=== PATIENT | female | born 1955 | race Caucasian/White ===

== ENCOUNTER 2021-05-22 15:44 | Emergency (ER) | payer MEDICARE ==
[~2021-05-22] VITALS: Ht 165.1 cm; Wt 85.0 kg
[2021-05-22 15:54] VITALS: BP 94/58
[2021-05-22] MEDS ORDERED: FAMOTIDINE 20 MG TABLET PO ONE (16:45)
[2021-05-22] MEDS ORDERED: diphenhydrAMINE HCL 25 MG CAPSULE PO ONE (16:45)
[2021-05-22] MEDS ORDERED: DEXAMETHASONE SOD PHOS 10 MG/ML VIAL. PO ONE (16:45)
--- NOTE | 2021-05-22 16:45 | PHYS DOC ---
Past History Past Surgical History: Cholecystectomy, Hysterectomy Additional Past Surgical Histo: right leg ino, trach Alcohol Use: None Adult General Chief Complaint Chief Complaint: CONGESTION HPI HPI Patient is a [age] year old [sex] who presents with [] Review of Systems Review of Systems Fourteen body systems of review of systems have been reviewed. See HPI for pertinent positives and negative responses, other sinclair all other systems are neg ative, non-pertinent or non-contributory Allergies Allergies Allergies Coded Allergies Type Severity Reaction Last Updated Verified Penicillins Allergy Unknown 05/22/21 Yes Uncoded Allergies Type Severity Reaction Last Updated Verified SULFA Allergy Unknown 05/22/21 Physical Exam Physical Exam Constitutional: Well developed, well nourished, no acute distress, non-toxic appearance. HENT: Normocephalic, atraumatic, bilateral external ears normal, oropharynx moist, no oral exudates, nose normal. Airway patent, tolerating secretions, s inus pressure to left maxillary sinus, uvula inflamed and edematous Eyes: PERRLA, EOMI, conjunctiva normal, no discharge. Neck: Normal range of motion, no tenderness, supple, no stridor. Cardiovascular: Heart rate regular, sinus rhythm, no murmurs rubs or gallops Lungs & Thorax: Bilateral breath sounds clear to auscultation Abdomen: Bowel sounds normal, soft, no tenderness, no masses, no pulsatile masses. Nonsurgical abdomen, no peritoneal signs Skin: Warm, dry, no erythema, no rash. Back: No tenderness, no CVA tenderness. Extremities: No tenderness, no cyanosis, no clubbing, ROM intact, no edema. Neurologic: Alert and oriented X 3, grossly normal motor & sensory function, no focal deficits noted. Psychologic: Affect normal, judgement normal, mood normal. Current Patient Data Vital Signs Vital Signs Date Time Temp Pulse Resp B/P (MAP) Pulse Ox O2 Delivery O2 Flow Rate FiO2 05/22/21 15:54 99.1 102 16 94/58 97 Room Air EKG EKG [] Radiology/Procedures Radiology/Procedures [] Heart Score Risk Factors: Risk Factors: DM, Current or recent (<one month) smoker, HTN, HLP, family history of CAD, obesity. Risk Scores: Risk Factors: DM, Current or recent (<one month) smoker, HTN, HLP, family history of CAD, obesity. Course & Med Decision Making Course & Med Decision Making Uvulitis, likely noninfectious giving history Given history and physical exam findings, deferring any swabs or invasive work- up given patient is not ill-appearing Jeremias Disclaimer Jeremias Disclaimer This electronic medical record was generated, in whole or in part, using a voice recognition dictation system. Departure Departure: Impression: Primary Impression: Uvulitis Disposition: HOME / SELF CARE / HOMELESS Condition: STABLE Referrals: TOMEKA DEVRIES MD (PCP) Additional Instructions: As discussed prior to ER departure, your vitals and physical exam were nonconcerning for any emergent or surgical issues. You had a patent and intact airway. With that said, your history and physical exam was consistent with likely noninfectious uvulitis likely due to an allergic reaction. You were given steroids, Benadryl and an H2 lidia which all should help decrease the inflammatory response and improve your symptoms within the next 24 to 48 hours. As instructed, if any concern for your airway arises such as closure, feelings of shortness of breath, drooling or feelings that you cannot tolerate your secretions it is pertinent that you administer x1 dose of your EpiPen and immediately presented to our or other closest ER for emergent evaluation. If any concerning signs or symptoms present before outpatient follow-up please do not hesitate to come back for repeat evaluation. It was a pleasure to take care of you and I wish you the best going forward Scripts Famotidine (FAMOTIDINE) 40 Mg Tablet 1 TAB PO DAILY for uvulitis, #15 TAB 0 Refills Prov: MOSES ALEMAN DO 05/22/21 MOSES ALEMAN DO May 22, 2021 16:45
[2021-05-22] MEDS ORDERED: FAMO40TA4 PO (17:27)
== END 2021-05-22 18:04 | disposition home or self-care (01) ==
LOC: ER 15:44
DX: K12.2 Cellulitis and abscess of mouth (principal); Z88.0 Allergy status to penicillin; Z90.49 Acquired absence of other specified parts of digestive tract; Z90.710 Acquired absence of both cervix and uterus
CPT/HCPCS: 99282; J1100; Q0163

== ENCOUNTER → 2021-07-19 | Outpatient (CLI) | payer MEDICARE ==
[~2021-07-19] MED LIST: FAMO40TA4 PO; IOHEXOL 240 MG/ML 50ML VIAL. ONE; IOHEXOL 240 MG/ML 50ML VIAL. PO ONE; IOHEXOL 300 MG/ML 75 ML VIAL. IV ONE
[2021-07-19 12:48] LABS: ALBUMIN 4.3 g/dL (3.4-5.0); ALBUMIN/GLOBULIN RATIO 1.2 (1.0-1.7); CALCIUM 9.4 mg/dL (8.5-10.1); GFR 55.8; POTASSIUM 4.9 mmol/L (3.5-5.1); TOTAL BILIRUBIN 0.3 mg/dL (0.2-1.0); TOTAL PROTEIN 7.8 g/dL (6.4-8.2)
[2021-07-19 12:55] LABS: BASO % 0 % (0-3); EOS # 0.3 x10^3/uL (0.0-0.7); EOS % 3 % (0-3); HEMATOCRIT 39.5 % (36.0-47.0); HEMOGLOBIN 13.2 g/dL (12.0-15.5); LYMPH % 21 % (24-48); MEAN CORPUSCULAR HEMOGLOBIN 31 pg (25-35); MEAN CORPUSCULAR HGB CONC 33 g/dL (31-37); MEAN CORPUSCULAR VOLUME 93 fL (79-100); MONO # 0.5 x10^3/uL (0.0-1.1); MONO % 5 % (0-9); NEUT # 6.7 x10^3uL (1.8-7.7); NEUT % 70 % (31-73); PLATELET COUNT 321 x10^3/uL (140-400); RED BLOOD COUNT 4.25 x10^6/uL (3.50-5.40); RED CELL DISTRIBUTION WIDTH 13.4 % (11.5-14.5); WHITE BLOOD COUNT 9.5 x10^3/uL (4.0-11.0)
--- NOTE | 2021-07-19 13:19 | RAD ---
EXAM: Abdomen and pelvis CT with intravenous contrast. HISTORY: Left lower quadrant pain. TECHNIQUE: Computed tomographic images of the abdomen and pelvis were obtained following the administ ration of intravenous contrast. Multiplanar reformatting was performed. *One or more of the following individualized dose reduction techniques were utilized for this examina tion: 1. Automated exposure control. 2. Adjustment of the mA and/or kV according to patient size. 3. Use of iterative reconstruction technique. COMPARISON: None. FINDINGS: Evaluation of the lower thorax is unremarkable. There is hepatic steatosis. There is hepato megaly. The gallbladder is surgically absent. The pancreas, spleen and adrenal glands are unremarkabl e. There is mild left greater than right pelvicaliectasis. There is no marianne hydronephrosis. The blad abigail is unremarkable. There is no appendicitis. There is colonic diverticulosis. There is no evidence of superimposed diver ticulitis. There is diastasis of the ventral abdominal wall at the level of the umbilicus resulting i n protrusion of fat and loops of small bowel. There is no incarceration or mechanical obstruction. There is aortobiiliac atherosclerosis. There is no lymphadenopathy. There is no acute or suspicious o sseous finding. There is a chronic mild compression deformity of T12. There are degenerative changes primarily at the lower lumbar levels. IMPRESSION: 1. Colonic diverticulosis. There is no evidence of diverticular disease. 2. 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 There is no incarceration or obstruction. 3. Hepatic steatosis and hepatomegaly. 4. Mild left greater than right renal pelvicaliectasis. There is no marianne hydronephrosis. Electronically signed by: Lilliana Newby MD (07/19/2021 1:17 PM) [id number]
== END ==
LOC: RAD 11:48
PROVIDERS: ATTEND Family Medicine
DX: K76.0 Fatty (change of) liver, not elsewhere classified (principal); K57.30 Diverticulosis of large intestine without perforation or abscess without bleeding; I70.0 Atherosclerosis of aorta; I70.8 Atherosclerosis of other arteries; Z90.49 Acquired absence of other specified parts of digestive tract
CPT/HCPCS: 36415; 74177; 80053; 83690; 85025; Q9966; Q9967